=== PATIENT | male | born 1985 | race Caucasian/White ===

== ENCOUNTER 2024-03-17 20:01 | Emergency (ER) | payer OTHER, SELFPAY ==
[2024-03-17 20:03] VITALS: BP 136/96; PULSE 87; TEMP 37; O2SAT 97; BMI 35.6
--- NOTE | 2024-03-17 20:11 | XR_ITS ---
The [address] [address] Patient Name: CUONG MAN MRN: [id number] date: 1985 Sex: M Assigned Patient Location: ER Current Patient Location: Accession/Order Number: [id number] Exam Date: 03/17/2024 20:55 Report Date: 03/17/2024 22:38 At the request of: MELISSA REAL Procedure: XR finger RT min 2V EXAM: XR finger RT min 2V HISTORY: The patient is a 38-year-old male, injury COMPARISON: None. FINDINGS: The right thumb is radiographically negative with no evidence of fracture, dislocation, joint space narrowing, osteophytes, or other osseous or articular abnormalities. XR/XR finger RT min 2V IMPRESSION: Negative. Electronically authenticated by: RO SAN Date: 03/17/2024 22:38
--- NOTE | 2024-03-17 20:38 | ED_ITS ---
HPI HPI - Extremity Injury (Upper) General Chief Complaint: Extremity Injury, Upper Stated Complaint: UPPER EXTREMITY INJURY Time Seen by Provider: 03/17/24 20:11 Source: patient Mode of arrival: walk-in Limitations: no limitations History of Present Illness HPI narrative: Patient is a [id number] 38-year-old male who presents to the emergency department for an injury to the right thumb. He states just prior to arrival he was moving cattle when his right thumb bent backward and he felt a pop. He arrives to the ER complaining of diffuse pain over the thumb. No medications pr ior to arrival. No other associated injuries. Related Data Previous Rx's ?Medication ?Instructions ?Recorded ketorolac 10 mg tablet 10 mg PO TID PRN pain #10 tabs 03/17/24 Allergies Allergy/AdvReac Type Severity Reaction Status Date / Time No Known Drug Allergies Allergy Verified 03/17/24 20:06 Opioid HPI Opioid Management Most Recent Pain and Opioid Data: No Data to Display Review of Systems ROS Constitutional Denies: fever or chills Ears, nose, mouth, and throat Denies: throat pain or nasal congestion Respiratory Denies: shortness of breath Gastrointestinal Denies: nausea or vomiting Musculoskeletal Reports: extremity pain; Denies: back pain or neck pain Integumentary/Breast Denies: rash Hematologic/Lymphatic Denies: easy bruising or easy bleeding Exam Narrative Exam Narrative: Gen.: Awake, alert, in no distress Head: Normocephalic, atraumatic ENT: Moist mucous membranes Respiratory: No respiratory distress Extremities: Moves extremities equally, right thumb with no edema or obvious deformity. No ecchymosis. Normal flexion and extension at the IP and MCP joint. Psych: Normal mood and affect Neuro: No focal neuro deficit Skin: Warm, dry, intact Constitutional Vital Signs, click to edit/add: Last Vital Signs Temp 98.6 F 03/17/24 20:03 Pulse 87 03/17/24 20:03 Resp 18 03/17/24 20:03 BP 136/96 H 03/17/24 20:03 Pulse Ox 97 03/17/24 20:03 O2 Del Method Room Air 03/17/24 20:03 Course Vital Signs Vital signs: Vital Signs Temperature 98.6 F 03/17/24 20:03 Pulse Rate 87 03/17/24 20:03 Respiratory Rate 18 03/17/24 20:03 Blood Pressure 136/96 H 03/17/24 20:03 Pulse Oximetry 97 03/17/24 20:03 Oxygen Delivery Method Room Air 03/17/24 20:03 Temperature 98.6 F 03/17/24 20:03 Pulse Rate 87 03/17/24 20:03 Respiratory Rate 18 03/17/24 20:03 Blood Pressure 136/96 H 03/17/24 20:03 Pulse Oximetry 97 03/17/24 20:03 Oxygen Delivery Method Room Air 03/17/24 20:03 MDM - Extremity Injury (Upper) MDM Narrative Medical decision making narrative: Patient with normal range of motion, no obvious deformity or evidence of tendon deficit. X-rays with no evidence of fracture or dislocation. Patient placed in a finger splint and remains neurovascularly intact. Rest, ice, elevate. Follow-up with PCP and return to the ER if symptoms change or worsen SUPERVISED APC VISIT, PHYSICIAN ATTESTATION: Based on the medical record the care appears appropriate. ? Medical Records Attestation: I reviewed the patient's medical records. Discharge Plan Discharge Stand Alone Forms: Work/School Release, Portal Instructions Chief Complaint: Extremity Injury, Upper Clinical Impression: Finger sprain Patient Disposition: Home, Self-Care Time of Disposition Decision: 21:10 Condition: Good Prescriptions / Home Meds: New ketorolac 10 mg tablet 10 mg PO TID PRN (Reason: pain) Qty: 10 0RF Print Language: [place]er Instructions: Finger Sprain (ED) Referrals: LEÓN CRUMP [Primary Care Provider] - 1 week
[2024-03-17] MEDS: HYDROCODONE/ACET 5-325 MG TABLET 1 TAB PO (21:17)
[2024-03-17] MEDS: KETOROLAC TROMETHAMINE 10 MG TABLET PO (21:18)
== END 2024-03-17 21:28 | disposition home or self-care (01) ==
PROVIDERS: Emergency Provider Student in an Organized Health Care Education/Training Program; PCP Nurse Practitioner Family
DX: S63.601A Unspecified sprain of right thumb, initial encounter (principal); X50.9XXA Other and unspecified overexertion or strenuous movements or postures, initial encounter
CPT/HCPCS: 29130; 73140; 99284